=== PATIENT | female | born 1990 | race African-American/Black ===

== ENCOUNTER 2020-03-06 17:03 | Emergency (ER) | payer OTHER, SELFPAY ==
[2020-03-06 17:15] VITALS: BP 103/61; PULSE 72; RESP 16; TEMP 37; O2SAT 100
--- NOTE | 2020-03-06 17:36 | ECG_ITS ---
Measurements Intervals [place] Rate: 63 P: 44 [place]: 138 QRS: 36 QRSD: 85 T: 5 QT: 388 QTc: 399 Interpretive Statements SINUS RHYTHM NORMAL ECG Electronically Signed On 03-07-2020 7:14:53 CDT by Bertram Ochoa D.O.
--- NOTE | 2020-03-06 18:06 | ED.GENADULT ---
HPI - General Adult General Chief complaint: Chest Pain Stated complaint: Chest Pain Time Seen by Provider: 03/06/20 17:35 Source: patient and RN notes reviewed Mode of arrival: ambulatory Limitations: no limitations History of Present Illness HPI narrative: Patient presents today complaining of a 3-day history of sternal chest pain that has been constant. Denies radiation of the pain. States this pain has occurred in the past. She is supposed to be referred to cardiology by her PCP, but has not yet had an appointment. She reports shortness of breath with some exertion. Denies nausea, vomiting, fever, or any other URI symptoms. States she has been taking ibuprofen without relief. Currently rates her pain 01/20. Patient also has history of GERD for which she takes Protonix. MD complaint: chest pain Related Data Allergies Allergy/AdvReac Type Severity Reaction Status Date / Time No Known Allergies Allergy Unverified 05/13/15 13:37 Review of Systems Review of Systems: Narrative: CONSTITUTIONAL: Denies body aches, fever, chills, or sweats. EYES: Denies visual changes, redness, or discharge. ENT: Denies rhinorrhea, congestion, sore throat, or otalgia. CARDIOVASCULAR: Denies palpitations, or edema.+ Chest pain RESPIRATORY: Denies cough. + Shortness of breath GASTROINTESTINAL: Denies abdominal pain, nausea, vomiting, or diarrhea. GENITOURINARY: Denies dysuria or hematuria. SKIN: Denies rash, itching, or wounds. MUSCULOSKELETAL: Denies back pain, joint pain, or myalgia. NEUROLOGIC: Denies headache, numbness, tingling, or weakness. PSYCH: Denies depression or anxiety. PMFSH Social History Social History Gender identity (if verbalized by the patient): Female Comments At time of signature, I have reviewed and agree with nursing past medical, surgical, social and family history unless otherwise noted. Please see nursing chart for further information. There is no relevant family history pertinent to the presenting complaint Exam Narrative: Exam Narrative: GENERAL: Well-appearing, well-nourished, and in no acute distress. HEAD: Normocephalic, atraumatic. EYES: EOMI. No redness or drainage. Conjunctivae normal. ENT: Mucous membranes pink and moist. NECK: Normal AROM. Supple. No lymphadenopathy. CHEST: No respiratory distress. Clear to auscultation. Significant point tenderness to the bilateral sternal borders. No tenderness to the remainder of the chest. HEART: Regular rate and rhythm. No murmur appreciated. Normal peripheral pulses. ABDOMEN: Soft, nontender, nondistended, normal active bowel sounds. MUSCULOSKELETAL: No bony tenderness. EXTREMITIES: Normal range of motion. No edema. SKIN: Warm, dry, no rash. Capillary refill normal. Normal skin turgor. NEURO: No focal deficits. Alert and oriented x3. Gait steady. PSYCH: Normal affect. No signs of depression or anxiety. Course Vital Signs Vital signs: Vital Signs Temperature 98.6 F 03/06/20 17:15 Pulse Rate 72 03/06/20 17:15 Respiratory Rate 16 03/06/20 17:15 Blood Pressure 103/61 03/06/20 17:15 Pulse Oximetry 100 03/06/20 17:15 Temperature 98.6 F 03/06/20 17:15 Pulse Rate 72 03/06/20 17:15 Respiratory Rate 16 03/06/20 17:15 Blood Pressure 103/61 03/06/20 17:15 Pulse Oximetry 100 03/06/20 17:15 Reviewed Medical Decision Making Differential Diagnosis Differential Diagnosis: Costochondritis, CAD, [place], pleurisy, pneumonia Vital Signs Vital Signs: Vital Signs Temperature 98.6 F 03/06/20 17:15 Pulse Rate 72 03/06/20 17:15 Respiratory Rate 16 03/06/20 17:15 Blood Pressure 103/61 03/06/20 17:15 Pulse Oximetry 100 03/06/20 17:15 Temperature 98.6 F 03/06/20 17:15 Pulse Rate 72 03/06/20 17:15 Respiratory Rate 16 03/06/20 17:15 Blood Pressure 103/61 03/06/20 17:15 Pulse Oximetry 100 03/06/20 17:15 ECG Data EKG #1: Attestation: I personally reviewed and interpreted this ECG
== END 2020-03-06 18:20 | disposition home or self-care (01) ==
PROVIDERS: Emergency Provider Nurse Practitioner
DX: M94.0 Chondrocostal junction syndrome [Tietze] (principal); K21.9 Gastro-esophageal reflux disease without esophagitis
CPT/HCPCS: 93005; 99213; G0463

== ENCOUNTER 2023-08-20 18:30 | Emergency (ER) | payer OTHER, SELFPAY ==
--- NOTE | ~2023-08-20 | CT_ITS ---
EXAMINATION: CT brain wo con DATE: 08/20/2023 20:00 INDICATION: Migraine headache. TECHNIQUE: Computed tomography (CT) of the head was performed without intravenous contrast. The mA wa s adjusted according to patient size. Iterative reconstruction technique was employed. The dose-lengt h product was 605.33 mGy-cm. COMPARISON: None FINDINGS: There is no intracranial hemorrhage, acute infarction, or abnormal intracranial mass lesion . The ventricles are normal in size. The orbits are normal. There is mild mucosal thickening in the p aranasal sinuses. The mastoid air cells are normal. IMPRESSION: 1. Normal brain. Reviewed, dictated and finalized at location E. T MOUNTER IMPRESSION: 1. Normal brain.
[2023-08-20 18:34] VITALS: BP 119/76; PULSE 82; RESP 17; TEMP 36.5; O2SAT 99
[2023-08-20] MEDS: SODIUM CHLORIDE 0.9% IV 1,000 ML 999 ML IV CONT (20:08)
[2023-08-20] MEDS: PROCHLORPERAZINE EDISYLATE 10 MG/2 ML VIAL IV PUSH (20:09)
[2023-08-20] MEDS: KETOROLAC 15 MG/ML VIAL (*BKC) IV PUSH (20:09)
[2023-08-20] MEDS: diphenhydrAMINE HCl INJ 50 MG/ML VIAL IV PUSH (20:10)
--- NOTE | 2023-08-20 20:29 | ED.GENADULT ---
HPI - General Adult General Chief complaint: Headache Stated complaint: headache x 1 week Time Seen by Provider: 08/20/23 19:08 History of Present Illness HPI narrative: Patient 33-year-old female who presents emergency department chief complaint of headache. Patient reports for the last couple days she has been having some discomfort in her head the patient reports little bit of nausea a bit of photophobia. The patient reports she took a dose of ibuprofen this morning but the pain has not completely gone away. Related Data Allergies Allergy/AdvReac Type Severity Reaction Status Date / Time No Known Allergies Allergy Verified 08/20/23 18:37 Review of Systems Review of Systems: A 10 system review of systems was completed on the patient and is negative except for what is stated in the HPI. Nursing and ancillary documentation was reviewed. [facility] Social History Social History Gender identity (if verbalized by the patient): Female Exam Narrative: GENERAL: Well-appearing, well-nourished, and in no acute distress. HEAD: Normocephalic, atraumatic. EYES: PERRLA and EOMI. ENT: Nares clear, no rhinorrhea or epistaxis. Mucous membranes moist. NECK: Supple. CHEST: Clear to auscultation. No respiratory distress. HEART: Regular rate and rhythm. No murmur heard. Normal peripheral pulses. ABDOMEN: Soft, nontender, nondistended, normal active bowel sounds. EXTREMITIES: Normal range of motion. No edema. SKIN: Warm, dry, no rash. NEURO: No focal deficits. Alert and oriented x3. PSYCH: Normal mood and affect. Course Vital Signs Vital signs: Vital Signs Temperature 36.5 C 08/20/23 18:34 Pulse Rate 82 08/20/23 18:34 Respiratory Rate 17 08/20/23 18:34 Blood Pressure 119/76 08/20/23 18:34 Pulse Oximetry 99 08/20/23 18:34 Oxygen Delivery Room Air 08/20/23 18:34 Temperature 36.5 C 08/20/23 18:34 Pulse Rate 82 08/20/23 18:34 Respiratory Rate 17 08/20/23 18:34 Blood Pressure 119/76 08/20/23 18:34 Pulse Oximetry 99 08/20/23 18:34 Oxygen Delivery Room Air 08/20/23 18:34 Medical Decision Making [facility] Narrative Medical decision making narrative: differential diagnosis includes migraine headache, intracranial hemorrhage, CT head was negative patient received a migraine cocktail and is feeling much better Vital Signs Vital Signs: Vital Signs Temperature 36.5 C 08/20/23 18:34 Pulse Rate 82 08/20/23 18:34 Respiratory Rate 17 08/20/23 18:34 Blood Pressure 119/76 08/20/23 18:34 Pulse Oximetry 99 08/20/23 18:34 Oxygen Delivery Room Air 08/20/23 18:34 Temperature 36.5 C 08/20/23 18:34 Pulse Rate 82 08/20/23 18:34 Respiratory Rate 17 08/20/23 18:34 Blood Pressure 119/76 08/20/23 18:34 Pulse Oximetry 99 08/20/23 18:34 Oxygen Delivery Room Air 08/20/23 18:34 Discharge Plan Discharge Clinical Impression: Headache Patient Disposition: Home, Self-Care Condition: Stable Instructions: Antibiotic Form, Acute Headache (ED) Prescriptions: No Action ketorolac 10 mg tablet 10 mg PO Q6H PRN (Reason: pain) 5 Days Qty: 20 0RF Follow-up/Referrals: Shadi Mason MD [Physician] - UNKNOWN,DOCTOR [Primary Care Provider] - Time of Disposition:
== END 2023-08-20 21:30 | disposition home or self-care (01) ==
PROVIDERS: Emergency Provider Emergency Medicine
DX: R51.9 Headache, unspecified (principal)
CPT/HCPCS: 70450; 96361; 96374; 96375; 99284; J0780; J1200; J1885; J7030

== ENCOUNTER 2023-09-18 17:21 | Emergency (ER) | payer OTHER, SELFPAY ==
--- NOTE | ~2023-09-18 | XR_ITS ---
EXAMINATION: XR chest 2V DATE: 09/18/2023 18:28 INDICATION: Chest pain. TECHNIQUE: Frontal and lateral views of the chest were obtained. COMPARISON: Chest 2 views 05/13/2015 FINDINGS: There is no pneumonia, pleural effusion, or pneumothorax. The heart size is normal. IMPRESSION: 1. No acute cardiopulmonary disease. Reviewed, dictated and finalized at location E. [facility]
--- NOTE | 2023-09-18 17:24 | ECG_ITS ---
Measurements Intervals [place] Rate: 97 P: 49 [place]: 122 QRS: 24 QRSD: 80 T: -18 QT: 339 QTc: 432 Interpretive Statements SINUS RHYTHM POSSIBLE LEFT ATRIAL ENLARGEMENT ST-T WAVE ABNORMALITY IN ANTEROLAT/INF LEADS- CONSIDER ISCHEMIA BASELINE ARTIFACT- I, III, AVF, V4-V6 ABNORMAL ECG NO PREVIOUS ECG AVAILABLE FOR COMPARISON Electronically Signed On 09-18-2023 18:29:42 [employer] by Bertram Ochoa D.O.
[2023-09-18 17:50] LABS: Basophils Percent Auto 0.5 % (0.2-1.2); Eosinophils Absolute Auto 0.2 K/mm3 (0-0.3); Hematocrit 37.8 % (37.0-47.0); Immature Granulocyte Absolute 0.01 K/mm3 (0.00-0.031); Immature Granulocyte Percent A 0.2 % (0-0.5); Lymphocytes Absolute Auto 3.64 K/mm3 (0.9-3.2); Lymphocytes Percent Auto 56.5 % (18.3-44.2); Mean Corpuscular HGB Conc 29.1 g/dl (32-36); Mean Corpuscular Volume 75.6 fl (80-100); Mean Platelet Volume 9.6 fl (7.4-10.4); Monocytes Absolute Auto 0.3 K/mm3 (0.1-0.6); Neutrophils Absolute Auto 2.3 K/mm3 (1.3-6.7); Neutrophils Percent Auto 34.8 % (45.5-73.1); Platelet Count Result 437 k/mm3 (150-375); Red Cell Distribution Width 16.6 % (11.5-14.5); White Blood Count 6.4 K/mm3 (4.5-10.0)
[2023-09-18 18:00] LABS: INR 1.1; Prothrombin Time 14.4 Seconds (11.1-14.7)
[2023-09-18 18:01] LABS: Partial Thromboplastin Time 35.7 SECONDS (22.3-36.8)
[2023-09-18 18:02] LABS: Alanine Aminotransferase 16 U/L (6-35); Albumin Level 4.7 g/dL (3.5-5.1); Alkaline Phosphatase 73 U/L (38-126); Anion Gap 4 mmol/L (8-16); Aspartate Amino Transferase 35 U/L (14-36); Bilirubin,Total 0.6 mg/dL (0.2-1.3); Blood Urea Nitrogen 12 mg/dL (7-17); Calcium 9.5 mg/dL (8.4-10.2); Carbon Dioxide 28 mmol/L (22-30); Chloride 106 mmol/L (98-107); Estimated Glomerular Filt Rate > 60; Glucose 81 mg/dL (65-110); Lipase 284 U/L (23-300); Potassium 3.3 mmol/L (3.4-5.0); Sodium 138 mmol/L (137-145)
[2023-09-18 18:10] LABS: Large Platelets Present; Platelet Estimate Adequate (Adequate)
[2023-09-18 18:11] LABS: Hypochromasia 1+ (NORMAL); Schistocytes None Seen (NORMAL); Tear Drop Cells 1+ (NORMAL)
[2023-09-18 18:13] LABS: Troponin I < 0.012 ng/mL (0.000-0.034)
[2023-09-18 19:12] VITALS: BP 101/68; PULSE 66; RESP 18; TEMP 36.4; O2SAT 97
[2023-09-18 21:27] LABS: Troponin I < 0.012 ng/mL (0.000-0.034)
--- NOTE | 2023-09-18 23:49 | ECG_ITS ---
Measurements Intervals [place] Rate: 68 P: 51 MS: 137 QRS: 38 QRSD: 82 T: 14 QT: 396 QTc: 423 Interpretive Statements SINUS RHYTHM LOW QRS VOLTAGE IN PRECORDIAL LEADS ST-T WAVE ABNORMALITY IN ANT/INF LEADS- CONSIDER ISCHEMIA ABNORMAL ECG COMPARED TO ECG 09/18/2023 17:32:09 NO SIGNIFICANT CHANGES Electronically Signed On 09-19-2023 6:31:47 [employer]ER by Bertram Ochoa D.O.
[2023-09-18 23:57] VITALS: PULSE 77
[2023-09-18 23:58] VITALS: O2SAT 100
[2023-09-19 00:02] VITALS: BP 100/72; PULSE 69; RESP 15; O2SAT 99
--- NOTE | 2023-09-19 00:33 | ED.CHESTPAIN ---
HPI - Chest Pain General Chief Complaint: Chest Pain Stated Complaint: CHEST PAIN, TINGLING TO EXT AFTER IRON INFUSION Time Seen by Provider: 09/18/23 23:47 History of Present Illness HPI narrative: Patient is a 33-year-old female who presents to the emergency department this evening complaining of chest pressure and bilateral arm tingling. Patient received an iron transfusion at a different facility shortly prior to arrival and patient states that while she was sitting in the parking lot she started to feel some heavy chest pressure, bilateral arm tingling decided to drive to our emergency department for further evaluation. Patient states that by the time she got here she got very sweaty and anxious. She denies any previous history of iron transfusions. Patient denies any nausea or vomiting, denies any lightheadedness, dizziness, changes in vision or focal weakness. There are no other modifying, alleviating, or precipitating factors at this time. Related Data Allergies Allergy/AdvReac Type Severity Reaction Status Date / Time No Known Allergies Allergy Verified 09/18/23 19:17 Review of Systems Review of Systems: All systems are reviewed and are negative unless stated otherwise in the HPI. [facility] Social History Social History Gender identity (if verbalized by the patient): Female Comments Past medical history significant for iron deficiency anemia, denies any surgical history, and significant family history, denies any tobacco use, alcohol abuse or illicit drug use. Exam Narrative: General: Alert, awake, afebrile, in no acute distress. HEENT: PERRL, no rhinorrhea, no post nasal drip, oropharynx clear. Neck: Trachea midline, no JVD, no lymphadenopathy. Cardiovascular: Regular rate and rhythm, no murmurs, rubs or gallops, no peripheral edema. Respiratory: Clear to auscultation bilaterally, no tachypnea, no wheezing, no rhonchi, no rubs, no respiratory distress. Abdomen: Soft, nontender, nondistended, no rebound, no guarding, no peritoneal signs. Musculoskeletal: No joint swelling or deformity, normal muscle tone. Skin: No rashes or petechia, no signs of infection. Psychiatric: Alert and oriented, normal behavior and judgment for situation. Neurological: Alert and oriented to person, place, and time. Follows all commands. No focal deficits, speech is clear and fluent. Course Vital Signs Vital signs: Vital Signs Temperature 97.6 F 09/18/23 19:12 Pulse Rate 66 09/18/23 19:12 Respiratory Rate 18 09/18/23 19:12 Blood Pressure 101/68 09/18/23 19:12 Pulse Oximetry 97 09/18/23 19:12 Oxygen Delivery Room Air 09/18/23 19:12 Temperature 97.6 F 09/18/23 19:12 Pulse Rate 69 09/19/23 00:02 Respiratory Rate 15 09/19/23 00:02 Blood Pressure 100/72 09/19/23 00:02 Pulse Oximetry 99 09/19/23 00:02 Oxygen Delivery Room Air 09/18/23 23:58 MDM - Chest Pain MDM Narrative Medical decision making narrative: The patient was evaluated by myself in the emergency department. History is obtained from patient who is an independent historian and physical exam was performed. External medical records were reviewed at this time. IV was established and pertinent tests were ordered. Patient was administered 50 mg of IM Toradol. EKG was obtained which revealed sinus rhythm at rate of 68 beats per minute with T-wave inversions in lead 3 and V3. EKG was independently interpreted by me and is currently pending official cardiology read. Patient has a low heart score of 1. EKG is also identical to previous EKG from February of 2020. Laboratory results obtained revealing no acute process. Two sets of troponins obtained were noted to be within normal limits. Imaging studies obtained included CXR which was independently interpreted by me revealing no acute process, which is pending final radiology interpretation. Differential diagnosis cons
[2023-09-19] MEDS: KETOROLAC 30 MG/ML VIAL (*BKC) 15 MG IM (01:13)
[2023-09-19 01:17] VITALS: BP 117/85; PULSE 67; RESP 15; TEMP 36.9; O2SAT 100
== END 2023-09-19 01:18 | disposition home or self-care (01) ==
PROVIDERS: Student in an Organized Health Care Education/Training Program; Emergency Provider Emergency Medicine; PCP Family Medicine
DX: F41.1 Generalized anxiety disorder (principal); R07.89 Other chest pain
CPT/HCPCS: 36415; 71046; 80053; 83690; 84484; 85025; 85610; 85730; 93005; 96372; 99284; J1885